=== PATIENT | male | born 1950 | race Hispanic/Latino ===

== ENCOUNTER 2019-05-18 05:45 | Observation (INO) | payer MEDICARE ==
[~2019-05-18 05:45] MED LIST: ANCEF/STERILE WATER 2 GM/20 ML 2 GM/20 ML SYRINGE IV NR
[2019-05-18] MEDS ORDERED: VERSED IV NR (06:00)
[2019-05-18] MEDS ORDERED: NEURONTIN PO SCH ×2 (06:00→07:00)
[2019-05-18] MEDS ORDERED: ANCEF/STERILE WATER 2 GM/20 ML 2 GM/20 ML SYRINGE IV NR (06:00)
[2019-05-18] MEDS ORDERED: LACTATED RINGERS 1,000 ML IV SCH (06:00)
[2019-05-18] MEDS ORDERED: TYLENOL PO ONE (06:00)
[2019-05-18] MEDS ORDERED: XYLOCAINE 1% 20 mL ONE (06:24)
[2019-05-18] MEDS ORDERED: MARCAINE 0.5% INFILTRATI ONE ×2 (06:24→08:25)
[2019-05-18] MEDS ORDERED: DIPRIVAN 10 MG/ML IV ONE (07:01)
[2019-05-18] MEDS ORDERED: SUBLIMAZE ONE (07:01)
--- NOTE | 2019-05-18 07:01 | Short Stay Summary ---
Short Stay Documentation Date of service: 05/18/19 - History H&P: obtained from office - Allergies and Medications Current Medications: Allergies No Known Allergies Allergy (Verified 05/16/19 16:37) Home Medications Medication Instructions Recorded Confirmed Last Taken Type amLODIPine [Norvasc] 5 mg PO DAILY 05/16/19 05/18/19 05/17/19 History Active Medications Celecoxib (Celebrex) 200 mg PO PREOP NR Stop: 05/18/19 23:59 Last Admin: 05/18/19 06:30 Dose: 200 mg Documented by: Gabapentin (Neurontin) 1,200 mg PO PREOP NOA Stop: 05/18/19 23:59 Last Admin: 05/18/19 06:30 Dose: 1,200 mg Documented by: Lactated Ringer's (Lactated Ringers) 1,000 mls @ 100 mls/hr IV DIRECT NOA Last Admin: 05/18/19 06:40 Dose: 100 mls/hr Documented by: Cefazolin Sodium (Ancef/Sterile Water 2 Gm/20 Ml) 2 gm in 20 mls @ 80 mls/hr IV PREOP NR; Protocol Stop: 05/18/19 23:59 Midazolam HCl (Versed) 2 mg IV PREOP NR Stop: 05/18/19 23:59 - Physical exam General appearance: no acute distress Lungs: Normal air movement Neurological: Normal speech - Brief post op/procedure progress note Date of procedure: 05/18/19 (dictation:[id number]) Pre-op diagnosis: incarcerated, sliding LIH Post-op diagnosis: same Procedure: robotic assisted LIH repair IVF 1500 UOP 625 EBL<50cc Anesthesia: GETA Findings: large, indirect LIH with sigmoid colon incarcerated in hernia sac Surgeon: JENNIFER CHRIS Estimated blood loss: minimal (<50cc) Pathology: none Condition: stable - Hospital course Hospital course: uneventful surgery. Pt had significant post-op nausea in PACU as well as urinary retention. Admitted overnight for observation. Issues resolved in the AM. Able to tolerate liquids. Nausea gone. Able to urinate. d/c'd home in stable condition. - Disposition Condition at discharge: Stable Disposition: DC-01 TO HOME OR SELFCARE Short Stay Discharge Plan Diet: regular Wound: open to air, keep clean and dry, per your surgeon's advice Special Instructions: no heavy lifting Additional Instructions: Post Operative Instructions -No driving until cleared by surgeon . -May shower tomorrow. Pat dry the wound or wounds.keep surgical site clean and dry. -After surgery, start with a light diet. Consider having a liquid diet first. If you do well, you can advance to a regular diet as you feel comfortable. -Apply an ice pack to the wound or wounds for 10-20 minutes at a time. Do this at least 4-5 times a day. You can do it more if he would like. KEEP SURGICAL SITES CLEAN AND DRY. Alternate the use of ibuprofen and Tylenol for the first 2 days. I want you to take these on a scheduled basis. Take 600 mg of ibuprofen every 6 hours. Take 500 mg of Tylenol every 6 hours. You should alternate these 2 medicines. In other words, beginning with the ibuprofen. After 3 hours, take the Tylenol. Keep alternating the 2 drugs every 3 hours. -Do this on a scheduled basis for the first 2 days. After that, you can take them as needed. It is very important that you use the prescription pain medicine only for very severe pain. Do not take the prescription medicine before you try using the ibuprofen and Tylenol. We will call you in a couple of days to see how youre doing. If you have any questions or concerns related to your surgery , always feel free to call the clinic at any time SEEK IMMEDIATE CARE ( BY CALLING 911) IF YOU EXPERIENCE CHEST PAIN OR DIFFICULTY BREATHING . TODAY YOU HAVE HAD ANESTHESIA AND NARCOTICS . FOR THE NEXT 24 HOURS, YOU SHOULD NOT DRINK ALCOHOL MAKE LEGAL COOK DECISION OR OPERATE HEAVY MACHINERY. A RESPONSIBLE ADULT SHOULD REMAIN WITH YOU TODAY. TAKE MEDICATIONS PRESCRIBED. Follow up with: ANA MONTEZ MD [Primary Care Provider] - 7 Days JENNIFER CHRIS MD [Staff Physician] - 7 Days Forms: Outpatient Surgery DC Inst. Prescriptions: HYDROcodone/APAP 5-325 [Cobb 5/325] 1 each PO Q6HR PRN #20 tablet PRN Reason: Pain , Severe (7-10)
[2019-05-18] MEDS ORDERED: DILAUDID IV PRN ×2 (07:13→19:40)
--- NOTE | 2019-05-18 07:13 | Anesthesia Day of Surgery ---
Anesthesia Day of Surgery - Day of Surgery Patient Examined: Yes Patient H&P Reviewed: Yes Patient is NPO: Yes
--- NOTE | 2019-05-18 07:13 | Anesthesia Consultation ---
Anesthesia Consult and Med Hx Date of service: 05/18/19 - Airway Anesthetic Teeth Evaluation: Good, Crowns ROM Head & Neck: Adequate Mental/Hyoid Distance: Adequate Mallampati Class: Class III Intubation Access Assessment: Possibly Difficult - Pulmonary Exam CTA: Yes - Cardiac Exam Cardiac Exam: RRR - Pre-Operative Health Status ASA Pre-Surgery Classification: ASA2 Proposed Anesthetic Plan: General - Pulmonary Hx Smoking: No Hx Respiratory Symptoms: No Hx Sleep Apnea: No - Cardiovascular System Hx Hypertension: Yes (took amlodipine 05/17 PM) Hx Heart Attack/AMI: No Hx Percutaneous Transluminal Coronary Angioplasty (PTCA): No Hx Cardia Arrhythmia: No - Central Nervous System CVA: No Hx Psychiatric Problems: No - Gastrointestinal Hx Gastroesophageal Reflux Disease: No - Endocrine Hx Renal Disease: No Hx Liver Disease: No Hx Insulin Dependent Diabetes: No Hx Non-Insulin Dependent Diabetes: No Hx Thyroid Disease: No - Other Systems Hx Obesity: Yes - Additional Comments Anesthesia Medical History Comments: No hx anesthetic complications.
[2019-05-18] MEDS ORDERED: XYLOCAINE 1% 20 mL INFILTRATI ONE (08:25)
[2019-05-18] MEDS ORDERED: NACL 0.9% IR ONE (08:26)
[2019-05-18] MEDS ORDERED: NEO SYNEPHRINE/NS Syringe(OR USE) IV ONE (09:00)
[2019-05-18] MEDS ORDERED: DECADRON ONE (09:54)
[2019-05-18] MEDS ORDERED: ZOFRAN ONE ×2 (09:54→15:14)
[2019-05-18] MEDS ORDERED: ROBINUL ONE (09:54)
[2019-05-18] MEDS ORDERED: BLOXIVERZ ONE (09:54)
[2019-05-18] MEDS ORDERED: QUELICIN ONE (09:54)
[2019-05-18] MEDS ORDERED: ZEMURON IV ONE (09:54)
[2019-05-18] MEDS ORDERED: LACTATED RINGERS 1,000 ML ONE (09:54)
[2019-05-18] MEDS ORDERED: XYLOCAINE MPF 2% ONE (09:54)
[2019-05-18] MEDS ORDERED: TORADOL ONE (11:55)
[2019-05-18] MEDS ORDERED: BRIDION IV ONE (12:35)
[2019-05-18] MEDS ORDERED: PROVENTIL IH ONE ×2 (12:35→12:36)
[2019-05-18] MEDS ORDERED: ZOFRAN IV PRN (15:30)
[2019-05-18] MEDS ORDERED: REGLAN IV ONE (16:35)
[2019-05-18] MEDS ORDERED: REGLAN ONE (16:38)
[2019-05-18] MEDS ORDERED: PHENERGAN PO PRN (16:59)
[2019-05-18] MEDS ORDERED: PHENERGAN PR ONE ×2 (17:00→17:02)
--- NOTE | 2019-05-18 18:26 | Post Anesthesia Evaluation ---
- Post Anesthesia Evaluation Patient Participated: Yes Airway Patent: Yes Stable Respiratory Function: Yes Nausea/Vomiting: No Temp > 96.8F: Yes Pain Manageable: Yes Adequeate Hydration: Yes Anesthesia Complications: No
[2019-05-18] MEDS ORDERED: NORCO 5/325 PO PRN (19:40)
[2019-05-18] MEDS ORDERED: REGLAN IV PRN (19:40)
[2019-05-18] MEDS ORDERED: TYLENOL PO PRN (19:40)
[2019-05-18] MEDS: PHENERGAN PR SCH (21:47)
[2019-05-19] MEDS: TORADOL IV SCH ×2 (00:09→05:28)
[2019-05-19] MEDS: PHENERGAN PR SCH (02:59)
[2019-05-19 04:21] VITALS: BP 105/58
--- NOTE | 2019-05-19 08:01 | Progress Note ---
Assessment and Plan - Patient Problems (1) Nausea after anesthesia Current Visit: Yes Status: Acute Plan to address problem: Pt stable. Appears improved. If continues to do well, may go home. Advised to stay on liquid diet for today. (2) Acute urinary retention Current Visit: Yes Status: Acute Plan to address problem: Pt stable. Carrera out. May go home after he voids. Subjective Date of service: 05/19/19 Patient Reports: Positive: feels better, tolerating liquids well, other (minimal pain; feels bloated). Negative: nausea, vomiting Objective Vital Signs - 12hr 05/19/19 05/19/19 00:05 03:32 Temperature 98.0 F 98.2 F Pulse Rate 68 62 Respiratory 20 20 Rate Blood Pressure 106/61 105/58 O2 Sat by Pulse 92 94 Oximetry - General physical appearance no distress, no pain, other (looks better) - Eyes normal occular movement - Respiratory normal expansion, normal respiratory effort - Abdomen soft, tender (minimal), distended (mild), not guarding, not rigid - Integumentary no rash, no growths, no abnormal pigmentation - Psychiatric oriented to time, oriented to person, oriented to place, speech is normal, memory intact
--- NOTE | 2019-05-19 12:41 | Operative Report ---
PREOPERATIVE DIAGNOSIS: Incarcerated sliding left inguinal hernia. POSTOPERATIVE DIAGNOSIS: Incarcerated sliding left inguinal hernia. PROCEDURE: Robotic-assisted left inguinal hernia repair. ATTENDING PHYSICIAN: Nasir Joseph MD ANESTHESIA: General. ESTIMATED BLOOD LOSS: Less than 50 mL. FLUIDS: 1500 mL. URINE OUTPUT: 625 mL. FINDINGS: A very large left indirect inguinal hernia with sigmoid colon incarcerated in the hernia sac. SPECIMENS: None. DRAINS: None. COMPLICATIONS: None. DISPOSITION: Stable, transported to recovery room. IMPLANTS: Large left 3DMax mesh. INDICATIONS: This is a 68-year-old gentleman who presented to the office with complaints of progressively enlarging left inguinal hernia extending into the scrotum. The patient assessed to be in need for repair. Procedure, risks and benefits were explained to the patient. Risks included but were not limited to infection, bleeding, pain, injury to surrounding structures, possible recurrence, possible need for further procedures in the future. The patient understood and consented. OPERATIVE NOTE: The patient was brought to the operating room and placed on the table in supine position. After adequate general anesthesia was established, the patient was prepped and draped in the usual sterile fashion. SCDs were placed. Antibiotics had been given. Time-out was called. I began by placing a Veress needle in the left upper quadrant. I was able to insufflate in the first attempt. This was replaced with a 5-mm port inserted using the Optiview technique. I entered the peritoneal cavity safely. There was no injury to the underlying structures. I examined the abdomen. Surprisingly from his 2 paramedian incisions, he had one small adhesion in the epigastric area that was not going to get in our way and he had some mild adhesions in the right lower quadrant, presumably from his old appendicitis. I then proceeded to place ports under direct vision, one in the upper midline, one in the right upper quadrant and then another one in the left flank. The midline was 12 mm. The 5 was then replaced under direct vision with an 8 mm. I inserted two Ray-Tecs and the needles that we were going to use. I was holding off on the mesh until I knew for sure what size we would need. We then docked the robot. The patient was in Trendelenburg position. I proceeded to the console. I tried to manually reduce the contents, but made very little progress. I then tried with the robot to reduce the contents taking care to pull more on the epiploic appendages as opposed to the colon. Again, we made a little bit of progress, but not much. Therefore, I proceeded to release the hernia sac, made a transverse incision in the peritoneum. We created the flap. I dissected laterally and down to the pubic tubercle/Hiro's ligament area. I had a very nice dissection there and then proceeded to dissect out the hernia sac. This thing was heavily scarred and it was a very difficult dissection. I ended up doing a combination of dissection around the sac and some dissection of the contents within the sac. After a prolonged period of trying to reduce this mass and dissect off the hernia sac, we finally were able to reduce the contents intact. There were a couple areas of very small serosal tears that I repaired with a 3-0 silk suture. Otherwise, the bowel was viable and completely intact. I saw no evidence of any compromise of the bowel at any point. We eventually were able to dissect the sac off the cord structures. It was densely adhered to the canal and to the cord structures, but we removed it intact and I had a very good dissection proximally such that we were able to put a large left 3DMax mesh. It laid very nicely. There was no curling or buckling. I secured it to Hiro's ligament and to left anterior abdominal wall above the inguinal ligament with a 2-0 silk suture. We then closed the peritoneal defect with a running 3-0 V-Loc suture. The end result looked very good. There was no bleeding. The peritoneum laid over that area very nicely. We had no defects in the peritoneum. I then closed the serosal defects as we previously mentioned on the right side. It appeared as though he did not have a hernia yet, but he was at risk to develop one as there is a slight dimpling in that area, so we will discuss this in the office and should he develop some swelling there, then we will plan to proceed with the repair on the right side. At this point, we then converted back to laparoscopic approach. I removed the two Ray-Tecs and needles all intact. We desufflated the abdomen. I tried to remove as much air from the scrotum as possible and then removed the ports. We desufflated the abdomen. I closed the anterior rectus sheath with a 0 Vicryl stitch. Skin was closed with interrupted 4-0 Monocryl subcuticular stitches. Skin was cleaned and dried. Dermabond was placed. The patient tolerated the procedure well. There were no complications. All counts were correct at the end of the case. JOB# [id number] LOPEZ/SANTOS
== END 2019-05-19 14:00 | disposition home or self-care (01) ==
LOC: OR 05:45 → 3B-SURG 17:50
PROVIDERS: ADMIT Surgery; ATTEND Surgery
DX: K40.90 Unilateral inguinal hernia, without obstruction or gangrene, not specified as recurrent (principal); I10 Essential (primary) hypertension
CPT/HCPCS: 49650; 96374; 96375; 96376; C1781; G0378; J0330; J0690; J1100; J1885; J2250; J2405; J2704; J2710; J2765; J3010; J7120; S2900; J2370